=== PATIENT | male | born 1945 | race Caucasian/White ===

== ENCOUNTER 2018-10-03 07:27 | Day surgery (SDC) | payer MEDICARE ==
[2018-09-30 16:08] VITALS: BMI 22.0
[~2018-10-03 07:27] MED LIST: FAMOTIDINE 20 MG/2 ML VIAL IV ONE; HYDROmorphone 0.5 MG/0.5 ML SYRINGE IVP PRN; LACTATED RINGERS 1,000 ML IV SCH; ceFAZolin 1,000 MG in DEXTROSE/WATER 1 50ML.BAG IV ONE
[2018-10-03] MEDS ORDERED: ONDANSETRON 4 MG/2 ML VIAL IVP ONE (07:50)
[2018-10-03] MEDS ORDERED: DEXAMETHASONE SOD PHOSPHATE 10 MG/ML 1 ML VIAL IV ONE (07:50)
[2018-10-03] MEDS ORDERED: PROPOFOL 10 MG/ML 20 ML VIAL IV ONE (08:36)
[2018-10-03] MEDS ORDERED: MIDAZOLAM 2 MG/2 ML VIAL ONE (08:36)
[2018-10-03] MEDS ORDERED: fentaNYL (PF) 50 MCG/ML 2 ML AMP ONE (08:36)
[2018-10-03] MEDS ORDERED: LIDOCAINE 1% INJ 10MG/ML (20 ML MDV) ONE (08:36)
[2018-10-03] MEDS ORDERED: BUPIVACAIN-EPI 0.5%-1:200,000 30 ML VIAL SQ ONE (08:59)
[2018-10-03] MEDS ORDERED: LIDOCAINE 1%-EPI 1:100,000 20 ML VIAL SQ ONE (08:59)
[2018-10-03] MEDS ORDERED: BACITRACIN 500 UNIT/GM OINT 28.4 GM TUBE TOPICAL ONE (09:33)
[2018-10-03 10:02] VITALS: TEMP 97.2
--- NOTE | 2018-10-03 10:17 | P.OP ---
Date of Procedure: 10/03/18 Preoperative Diagnosis: 6.3 x 2 cm left posterior frontal scalp lesion Postoperative Diagnosis: Same Procedure(s) Performed: Excision of a 6.3 x 2 cm posterior frontal scalp lesion with bilateral advancement flap closure and the use of frozen section analysis intraoperatively to confirm negative margins. Anesthesia: GETA Surgeon: Rio Martínez Estimated Blood Loss (ml): 5 Pathology: other (Scalp lesion) Condition: stable Disposition: PACU Indications for Procedure: This patient presented to the office today. 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 Wider resection was recommended. All risks, benefits, and alternative therapies were discussed. Consent was obtained and all questions were answered. Operative Findings: Frozen section reveals that all margins are negative for tumor. Description of Procedure: This patient was taken to the operative room and placed in the supine position. A LMA was placed and the patient was under general anesthetic. The scalp was sterilely prepped and draped in usual fashion. The 6.3 x 2 cm lesion was marked and anesthetized with lidocaine 1% and bupivacaine. 10 minutes were allowed wait for full vasoconstrictive effects to take place. With use of a 15 blade an incision was made surrounding this lesion and was dissected with the delicate plastic scissors and a Brown-Adson forceps. The lesion was removed without incident. The lesion was sent for frozen section. All margins came back negative for tumor We then developed bilateral advancement flaps for closure. The secondary defect measured 12.6 x 4 cm. We did #stated the GALEA to stretch the scalp. We rotated the flaps into position and we did removed alice's triangles. We closed the deep subcutaneous galea and tissue with a 2- 0 Vicryl. The skin was closed with a 40 rapid Vicryl in a running locking fashion. Telfa gauze was placed with bacitracin ointment and the patient was taken to postanesthesia recovery in excellent condition. Follow-up will be in the office as needed. We'll call him with the results. All sutures are dissolvable
[2018-10-03 10:20] VITALS: RESP 18
[2018-10-03 10:57] VITALS: BP 149/75; PULSE 89
== END 2018-10-03 11:22 | disposition home or self-care (01) ==
LOC: OR 07:27
PROVIDERS: ATTEND Otolaryngology
DX: L57.8 Other skin changes due to chronic exposure to nonionizing radiation (principal); I10 Essential (primary) hypertension; Z88.5 Allergy status to narcotic agent
CPT/HCPCS: 88305; 88331; 14301; J2250; J1100; J2405; J2001; J3010; J0690; J2704